=== PATIENT | female | born 1975 | race American Indian/Alaskan Native ===

== ENCOUNTER 2021-05-25 16:23 | Emergency (ER) | payer OTHER ==
--- NOTE | 2021-05-25 17:19 | Emergency Department Report ---
<OLAMIDEIRENE - Last Filed: 05/26/21 01:10> ED Chest Pain HPI - General Chief Complaint: Chest Pain Stated Complaint: CHEST PAIN Time Seen by Provider: 05/25/21 16:48 - Related Data Allergies Allergy/AdvReac Type Severity Reaction Status Date / Time morphine AdvReac Hives Verified 05/25/21 16:31 mushroom AdvReac Hives Verified 05/25/21 16:32 ED Medical Decision Making - Lab Data Result diagrams: 05/25/21 16:59 05/25/21 16:59 - Medical Decision Making Patient is resting comfortably. Hesitant to to get out of bed. Once awake and ambulatory she will be discharged by my colleague. Troponin x3 -. Acute myocardial infarction has been ruled out. Patient does not an evident acute emergent condition which would explain her chest pain. Unfortunately severe alcohol intoxication is the most prominent issue at this time. ED Disposition Clinical Impression: Alcohol intoxication, Intermittent chest pain, Alcohol dependence, Abdominal pain Disposition: HOME / SELF CARE / HOMELESS Condition: Stable Instructions: Abdominal Pain, Adult, Alcohol Abuse and Dependence Information, Adult, Nonspecific Chest Pain, Adult Additional Instructions: Please follow-up with a primary care physician in the next few days. I have given you a referral for a local primary care physician, Dr. Deshpande, and a primary care clinic, [facility]. I am sending your contact information over to the [place], and someone from their office should be contacting you shortly for close outpatient follow-up. Just in case, I am giving you a referral for one of their automation specialist. I have given you referrals for substance abuse and rehabilitation facilities for treatment of your alcohol dependence. Return to the emergency department with any worsening of your symptoms, new or concerning symptoms not addressed during this current emergency department visit, or with any acute distress. Referrals: PRIMARY CARE, [Primary Care Provider] - 3-5 Days ALINE DESHPANDE MD [Staff Physician] - 3-5 Days [facility] [Provider Group] - 3-5 Days JESSE DELATORRE MD [Staff Physician] - 3-5 Days <BLACK MADRID - Last Filed: 05/26/21 05:52> Heart Score - HEART Score EKG: Non-specific - EKG Read Time Time EKG Completed: 17:06 EKG Read Time: 17:10 ED Course - Reevaluation(s) Reevaluation #1: 05/26/21 04:46 Patient appears clinically sober. Steady gait. Offered discharge if she can secure a ride. Patient states she has no medical speaking valve and will need a bus pass. Repeat alcohol level ordered since she will likely not have anyone to assume her care upon discharge ED Medical Decision Making - Lab Data Result diagrams: 05/25/21 16:59 05/25/21 16:59 - Medical Decision Making Blood alcohol level currently 0.06. Patient is clinically and medically sober may be discharged ED Disposition Is pt being admited?: No <YULI KRAMER - Last Filed: 05/26/21 22:55> ED Chest Pain HPI - General Source: EMS Mode of arrival: Stretcher Limitations: No Limitations - History of Present Illness Initial Comments: 45-year-old -Swiss female presents to the emergency department with a complaint of some left-sided chest pain that started just prior to presentation, as well as a 2-week history of middle to lower abdominal pain. Patient says that she has not had a menstrual cycle in about 2 months. She denies any vaginal bleeding, vaginal discharge, dysuria, nausea, vomiting, shortness of breath, fever. Patient has a history of alcohol abuse and dependence, HTN, DM, CVA without deficits. She denies any history of tobacco use. She has not taken anything for symptoms prior to presentation today. No recent travel or sick contacts at home. She says that the chest pain is resolved at the time of my examination. The abdominal pain is 5 out of 10 in intensity. No known aggravating or alleviating factors. Severity scale (0 -10): 4 Heart Score - HEART Score History: Slightly suspicious EKG: Non-specific Age: 45-65 Risk factors: 1-2 risk factors Troponin: < normal limit HEART Score: 3 - EKG Read Time Time EKG Completed: 17:06 EKG Read Time: 07:08 - Critical Actions Critical Actions: 0-3 pts:0.9-1.7%risk of adverse cardiac event.Candidate for discharge ED Review of Systems ROS: Stated complaint: CHEST PAIN Other details as noted in HPI ED Past Medical Hx - Past Medical History Hx CVA: Yes Hx Diabetes: Yes Hx Seizures: Yes Additional medical history: ETOH abuse ED Physical Exam - General Limitations: No Limitations - Other Other exam information: GENERAL: The patient is well-developed well-nourished. HENT: Normocephalic. Atraumatic. Patient has moist mucous membranes. EYES: Extraocular motions are intact. NECK: Supple. Trachea is midline. CHEST/LUNGS: Clear to auscultation. There is no respiratory distress noted. HEART/CARDIOVASCULAR: Regular. There is no tachycardia. There is no murmur. ABDOMEN: Abdomen is soft. Mild upper abdominal tenderness to palpation. No guarding. Patient has normal bowel sounds. There is no abdominal distention. SKIN: Skin is warm and dry. NEURO: The patient is awake, alert, and oriented. Patient appears intoxicated. The patient has no focal neurologic deficits. Normal speech. Cranial nerves II through XII grossly intact. No facial asymmetry. MUSCULOSKELETAL: There is no tenderness or deformity. There is no limitation range of motion. ED Course Vital Signs 05/25/21 05/25/21 05/25/21 16:31 17:01 17:09 Temperature 98.9 F Pulse Rate 86 99 H Respiratory 18 Rate Blood Pressure Blood Pressure 111/74 [Right] O2 Sat by Pulse 98 98 Oximetry 05/25/21 05/25/21 05/25/21 17:12 19:01 20:01 Temperature 98.4 F Pulse Rate Respiratory 13 19 Rate Blood Pressure 113/76 117/93 Blood Pressure [Right] O2 Sat by Pulse 100 100 Oximetry 05/25/21 05/25/21 05/25/21 21:01 22:01 22:32 Temperature Pulse Rate 77 80 74 Respiratory 16 Rate Blood Pressure 108/75 103/58 Blood Pressure [Right] O2 Sat by Pulse 100 100 Oximetry 05/25/21 05/26/21 05/26/21 23:00 00:01 01:01 Temperature Pulse Rate 69 74 68 Respiratory 15 15 Rate Blood Pressure 105/70 112/73 121/83 Blood Pressure [Right] O2 Sat by Pulse 100 100 100 Oximetry 05/26/21 05/26/21 05/26/21 02:01 03:01 04:01 Temperature Pulse Rate 64 69 92 H Respiratory 17 15 15 Rate Blood Pressure 120/90 122/80 125/81 Blood Pressure [Right] O2 Sat by Pulse 100 100 100 Oximetry 05/26/21 06:53 Temperature Pulse Rate 81 Respiratory 14 Rate Blood Pressure Blood Pressure 138/90 [Right] O2 Sat by Pulse 98 Oximetry EARL score - Earl Score Age > 65: (0) No Aspirin use within the Past 7 Days: (0) No 3 or more CAD Risk Factors: (0) No 2 or more Angina events in past 24 hrs: (1) Yes Known CAD with more than 50% Stenosis: (0) No Elevated Cardiac Markers: (0) No ST Deviation Greater than 0.5mm: (0) No EARL Score: 1 ED Medical Decision Making - Lab Data Result diagrams: 05/25/21 16:59 05/25/21 16:59 Lab Results 05/25/21 05/25/21 05/25/21 Range/Units 16:59 16:59 16:59 WBC 3.9 L (4.5-11.0) K/mm3 RBC 3.74 (3.65-5.03) M/mm3 Hgb 10.2 (10.1-14.3) gm/dl Hct 31.7 (30.3-42.9) % MCV 85 (79-97) fl MCH 27 L (28-32) pg MCHC 32 (30-34) % RDW 19.8 H (13.2-15.2) % Plt Count 395 (140-440) K/mm3 Lymph % (Auto) 35.1 H (13.4-35.0) % [place] % (Auto) 5.0 (0.0-7.3) % Eos % (Auto) 0.3 (0.0-4.3) % Baso % (Auto) 1.3 (0.0-1.8) % Lymph # (Auto) 1.4 (1.2-5.4) K/mm3 [place] # (Auto) 0.2 (0.0-0.8) K/mm3 Eos # (Auto) 0.0 (0.0-0.4) K/mm3 Baso # (Auto) 0.0 (0.0-0.1) K/mm3 Seg Neutrophils % 58.3 (40.0-70.0) % Seg Neutrophils # 2.3 (1.8-7.7) K/mm3 Sodium 142 (137-145) mmol/L Potassium 3.8 (3.6-5.0) mmol/L Chloride 102.8 (98-107) mmol/L Carbon Dioxide 23 (22-30) mmol/L Anion Gap 20 mmol/L BUN 11 (7-17) mg/dL Creatinine 0.6 (0.6-1.2) mg/dL Estimated GFR > 60 ml/min BUN/Creatinine Ratio 18 % Glucose 101 H (65-100) mg/dL Calcium 8.6 (8.4-10.2) mg/dL Total Bilirubin < 0.20 (0.1-1.2) mg/dL AST 51 H (5-40) units/L ALT 31 (7-56) units/L Alkaline Phosphatase 102 (35-129) units/L Troponin T < 0.010 (0.00-0.029) ng/mL Total Protein 7.6 (6.3-8.2) g/dL Albumin 4.0 (3.9-5) g/dL Albumin/Globulin Ratio 1.1 % Lipase 41 (13-60) units/L HCG, Qual (Negative) Plasma/Serum Alcohol 0.36 H (0-0.07) % 05/25/21 05/25/21 05/25/21 Range/Units 17:12 19:25 22:34 WBC (4.5-11.0) K/mm3 RBC (3.65-5.03) M/mm3 Hgb (10.1-14.3) gm/dl Hct (30.3-42.9) % MCV (79-97) fl MCH (28-32) pg MCHC (30-34) % RDW (13.2-15.2) % Plt Count (140-440) K/mm3 Lymph % (Auto) (13.4-35.0) % [place] % (Auto) (0.0-7.3) % Eos % (Auto) (0.0-4.3) % Baso % (Auto) (0.0-1.8) % Lymph # (Auto) (1.2-5.4) K/mm3 [place] # (Auto) (0.0-0.8) K/mm3 Eos # (Auto) (0.0-0.4) K/mm3 Baso # (Auto) (0.0-0.1) K/mm3 Seg Neutrophils % (40.0-70.0) % Seg Neutrophils # (1.8-7.7) K/mm3 Sodium (137-145) mmol/L Potassium (3.6-5.0) mmol/L Chloride (98-107) mmol/L Carbon Dioxide (22-30) mmol/L Anion Gap mmol/L BUN (7-17) mg/dL Creatinine (0.6-1.2) mg/dL Estimated GFR ml/min BUN/Creatinine Ratio % Glucose (65-100) mg/dL Calcium (8.4-10.2) mg/dL Total Bilirubin (0.1-1.2) mg/dL AST (5-40) units/L ALT (7-56) units/L Alkaline Phosphatase (35-129) units/L Troponin T < 0.010 < 0.010 (0.00-0.029) ng/mL Total Protein (6.3-8.2) g/dL Albumin (3.9-5) g/dL Albumin/Globulin Ratio % Lipase (13-60) units/L HCG, Qual Negative (Negative) Plasma/Serum Alcohol (0-0.07) % 05/26/21 Range/Units 04:47 WBC (4.5-11.0) K/mm3 RBC (3.65-5.03) M/mm3 Hgb (10.1-14.3) gm/dl Hct (30.3-42.9) % MCV (79-97) fl MCH (28-32) pg MCHC (30-34) % RDW (13.2-15.2) % Plt Count (140-440) K/mm3 Lymph % (Auto) (13.4-35.0) % [place] % (Auto) (0.0-7.3) % Eos % (Auto) (0.0-4.3) % Baso % (Auto) (0.0-1.8) % Lymph # (Auto) (1.2-5.4) K/mm3 [place] # (Auto) (0.0-0.8) K/mm3 Eos # (Auto) (0.0-0.4) K/mm3 Baso # (Auto) (0.0-0.1) K/mm3 Seg Neutrophils % (40.0-70.0) % Seg Neutrophils # (1.8-7.7) K/mm3 Sodium (137-145) mmol/L Potassium (3.6-5.0) mmol/L Chloride (98-107) mmol/L Carbon Dioxide (22-30) mmol/L Anion Gap mmol/L BUN (7-17) mg/dL Creatinine (0.6-1.2) mg/dL Estimated GFR ml/min BUN/Creatinine Ratio % Glucose (65-100) mg/dL Calcium (8.4-10.2) mg/dL Total Bilirubin (0.1-1.2) mg/dL AST (5-40) units/L ALT (7-56) units/L Alkaline Phosphatase (35-129) units/L Troponin T (0.00-0.029) ng/mL Total Protein (6.3-8.2) g/dL Albumin (3.9-5) g/dL Albumin/Globulin Ratio % Lipase (13-60) units/L HCG, Qual (Negative) Plasma/Serum Alcohol 0.06 (0-0.07) % - EKG Data -: EKG Interpreted by Me EKG shows normal: sinus rhythm, axis, intervals, QRS complexes (LVH), ST-T waves (There is some flattening of the T waves to the lateral leads) Rate: normal - EKG Data When compared to previous EKG there are: previous EKG unavailable Interpretation: other (Sinus rhythm at 85 bpm, LVH, normal axis, flattening of T waves laterally. No ST elevation FL) - Radiology Data Radiology results: image reviewed interpreted by me: Chest x-ray does not show any acute process. There are no pleural effusions, obvious pneumonia and there is no pneumothorax. No widened mediastinum. Abdominal x-ray shows nonspecific nonobstructive bowel gas. - Medical Decision Making Patient presented with a complaint of some intermittent sharp left-sided chest pains, and once she arrived to the emergency department she also complains of some intermittent abdominal pain. Patient has history of chronic alcohol abuse and dependence and her blood alcohol level was 0.36. EKG did not show any morphology consistent with ST elevation myocardial infarction. Chest x-ray does not show any pneumonia, pleural effusions, pneumothorax, widened mediastinum, or any other acute process. Abdominal x-ray shows nonspecific nonobstructive bowel gas. The rest the patient's labs have been mostly unremarkable including negative troponins x3. Vital signs reassuring throughout her ED course. The patient was signed out to my colleague to follow her troponins and wait for the blood alcohol level to come down or get clinically sober. Prior to leaving, I faxed her contact information over to the [facility] heart cardiology group and someone from their office should be contacting her shortly for close outpatient follow-up as part of our [facility] low risk chest pain protocol. Critical Care Time: No Critical care attestation.: If time is entered above; I have spent that time in minutes in the direct care of this critically ill patient, excluding procedure time. ED Disposition Is pt being admited?: No
[2021-05-25 17:23] LABS: Basophils % (Auto) 1.3 % (0.0-1.8); Eosinophils % (Auto) 0.3 % (0.0-4.3); Hematocrit 31.7 % (30.3-42.9); Hemoglobin 10.2 gm/dl (10.1-14.3); Lymphocytes # (Auto) 1.4 K/mm3 (1.2-5.4); Lymphocytes % (Auto) 35.1 % (13.4-35.0); Mean Corpuscular HGB Conc 32 % (30-34); Mean Corpuscular Volume 85 fl (79-97); Monocytes # (Auto) 0.2 K/mm3 (0.0-0.8); Platelet Count 395 K/mm3 (140-440); Red Blood Count 3.74 M/mm3 (3.65-5.03); Red Cell Distribution Width 19.8 % (13.2-15.2)
[2021-05-25 17:45] LABS: Alanine Aminotransferase 31 units/L (7-56); Blood Urea Nitrogen 11 mg/dL (7-17); Calcium 8.6 mg/dL (8.4-10.2); Hemolysis Index 17
[2021-05-25 17:47] LABS: BUN/Creatinine Ratio 18
[2021-05-25] MEDS ORDERED: THIAMINE 100 MG, FOLIC ACID 1 MG, MULTIPLE VITAMIN INJ, ADULT 10 ML in SODIUM CHLORIDE ... IV ONE (17:52)
--- NOTE | 2021-05-25 18:52 | XRay Report ---
ABDOMEN 3 VIEW(S) INDICATION / CLINICAL INFORMATION: Abd pain, CP. COMPARISON: None available. FINDINGS: TUBES / LINES: None. BOWEL GAS PATTERN: No significant abnormality. FREE AIR / EXTRALUMINAL GAS: None seen. ADDITIONAL FINDINGS: No significant additional findings. IMPRESSION: 1. No significant abnormality. Signer Name: Jeremiah Zelaya MD Signed: 05/25/2021 6:48 PM Workstation Name: [id number]
[2021-05-25] MEDS ORDERED: KETOROLAC 30 MG/1 ML INJ IV ONE (19:38)
[2021-05-26 06:54] VITALS: BP 138/90
--- NOTE | 2021-05-26 09:47 | Electrocardiograph Report ---
[facility] Test Date: 2021-05-25 Test Time: 17:06:48 Pat Name: TAY BRUCE Department: Room: Gender: F Adjunct Psychology Professor: ED NURSE : 1975 Requested By: YULI KRAMER Order Number: [id number] Reading MD: Aldair Levine Measurements Intervals [place] Rate: 85 P: 57 W[place]: 146 QRS: -7 QRSD: 93 T: 99 QT: 409 QTc: 487 Interpretive Statements Sinus rhythm Left ventricular hypertrophy Nonspecific T abnormalities, lateral leads No previous ECG available for comparison Electronically Signed On 05-26-2021 9:47:20 EDT by Aldair Levine
== END 2021-05-26 06:53 | disposition home or self-care (01) ==
LOC: ED 16:23
DX: F10.129 Alcohol abuse with intoxication, unspecified (principal); R07.89 Other chest pain; E11.9 Type 2 diabetes mellitus without complications; Z86.69 Personal history of other diseases of the nervous system and sense organs; Z86.73 Personal history of transient ischemic attack (TIA), and cerebral infarction without residual deficits; R10.10 Upper abdominal pain, unspecified; Z79.899 Other long term (current) drug therapy; Y90.9 Presence of alcohol in blood, level not specified
CPT/HCPCS: 36415; 74022; 80053; 83690; 84484; 84703; 85025; 93005; 96365; 96366; 96375; 99284; J1885; J3411; J7030; 80320; G0480